=== PATIENT | male | born 1960 | race Caucasian/White ===

== ENCOUNTER → 2019-04-17 | Outpatient (CLI) | payer OTHER ==
--- NOTE | 2019-04-18 10:32 | ECHOF ---
Referral Reason:I71.3 Abdominal aortic aneurysm rupture MEASUREMENTS -------- HEIGHT: 172.7 cm WEIGHT: 73.5 kg BP: RVIDd: 3.5 cm (< 3.3) IVSd: 1.4 cm (0.6 - 1.1) LVIDd: 4.2 cm (3.9 - 5.3) LVPWd: 1.2 cm (0.6 - 1.1) IVSs: 1.6 cm LVIDs: 3.3 cm LVPWs: 1.2 cm LA Diam: 4.4 cm (2.7 - 3.8) LAESV Index (A-L): 21.18 ml/m Ao Diam: 3.3 cm (2.0 - 3.7) AV Cusp: 2.3 cm (1.5 - 2.6) MV EXCURSION: 19.783 mm (> 18.000) MV EF SLOPE: 63 mm/s (70 - 150) EPSS: 0.6 cm MV E Elijah: 0.41 m/s MV DecT: 286 ms MV A Elijah: 0.71 m/s MV E/A Ratio: 0.58 RAP: 5.00 mmHg RVSP: 17.61 mmHg FINDINGS -------- Sinus rhythm. This was a technically adequate study. The left ventricular size is normal. There is moderate concentric left ventricular hypertrophy. O verall left ventricular systolic function is low-normal with, an EF between 50 - 55 %. The right ventricle is normal in size. The left atrial size is normal. The right atrial size is normal. There is mild aortic valve sclerosis. There is no evidence of aortic regurgitation. Mild mitral annular calcification present. Mild mitral regurgitation is present. Mild tricuspid regurgitation present. Right ventricular systolic pressure is normal at < 35 mmHg. There is no evidence of pulmonary hypertension. There is no pulmonic regurgitation present. The aortic root size is normal. Echo free space represents a pericardial fat pad. CONCLUSIONS -------- 1. Sinus rhythm. 2. This was a technically adequate study. 3. The left ventricular size is normal. 4. There is moderate concentric left ventricular hypertrophy. 5. Overall left ventricular systolic function is low-normal with, an EF between 50 - 55 %. 6. The right ventricle is normal in size. 7. The left atrial size is normal. 8. The right atrial size is normal. 9. There is mild aortic valve sclerosis. 10. Mild mitral annular calcification present. 11. Mild mitral regurgitation is present. 12. Mild tricuspid regurgitation present. 13. Right ventricular systolic pressure is normal at < 35 mmHg. 14. There is no evidence of pulmonary hypertension. 15. There is no pulmonic regurgitation present. 16. The aortic root size is normal. 17. Echo free space represents a pericardial fat pad. IN [employer]OL SUSPENSION AIDE: Jessie Clarke RDCS
== END | disposition home or self-care (01) ==
LOC: RADECHMAIN 12:50
PROVIDERS: ATTEND Family Medicine
DX: I08.1 Rheumatic disorders of both mitral and tricuspid valves (principal); Z88.0 Allergy status to penicillin; Z91.030 Bee allergy status
CPT/HCPCS: 93306

== ENCOUNTER → 2020-07-14 | Outpatient (CLI) | payer OTHER ==
--- NOTE | 2020-07-14 12:26 | MR ---
TYPE: MR knee RT wo con DATE OF EXAM: 07/14/2020 COMPARISON: Outside radiograph 06/26/2020 HISTORY: 59-year-old male M25.561, Right knee pain x 3-4 months TECHNIQUE: Multiplanar, multisequence imaging of the right knee is performed without IV contrast. FINDINGS: ACL, PCL, MCL, and LCL complex are intact. There is inner margin tearing/fraying involving the posterior horn of the medial meniscus. Moderate d iffuse thinning of medial compartment articular cartilage with severe, full-thickness cartilage loss along the A2 medial lip of the medial tibial plateau. Reactive underlying subchondral marrow edema. Lateral meniscus is intact. Mild diffuse thinning of lateral compartment articular cartilage volume. Mild thinning of patellofemoral compartment articular cartilage. No high-grade cartilage defect. Extensor mechanism is intact. Anterior soft tissue swelling. Edema within the suprapatellar fat pad. No significant knee joint effusion. Normal popliteal artery anatomy in muscle bulk. No suspicious bone marrow replacement. IMPRESSION: 1. Some inner margin tearing/fraying of the posterior horn of the medial meniscus. 2. Moderate diffuse thinning of medial compartment articular cartilage volume along with high-grade c artilage loss along the anterior medial aspect of the tibial plateau. There is associated prominent u nderlying degenerative bone marrow signal changes. 3. Nonspecific anterior soft tissue swelling. Edema in the suprapatellar fat pad may be seen with fat pad impingement syndrome. Clinically correlate.
== END | disposition home or self-care (01) ==
LOC: RADMRIMAIN 11:05
PROVIDERS: ATTEND Orthopaedic Surgery
DX: M23.321 Other meniscus derangements, posterior horn of medial meniscus, right knee (principal); M75.41 Impingement syndrome of right shoulder

== ENCOUNTER → 2020-08-19 | Outpatient (CLI) | payer OTHER ==
[2020-08-19 15:48] LABS: Basophils # (A) 0.1 k/uL (0-0.2); Basophils % (A) 1 %; Eosinophils # (A) 0.2 k/uL (0-0.7); Eosinophils % (A) 3 %; HCT 40.6 % (39.0-53.0); HGB 14.3 gm/dL (13.0-17.5); Lymphocytes % (A) 29 %; MCH 33.2 pg (25.0-35.0); MCHC 35.1 g/dL (31.0-37.0); MCV 94.6 fL (80.0-100.0); Mean Platelet Volume 7.4; Monocytes # (A) 0.6 k/uL (0-1.0); Monocytes % (A) 8 %; Neutrophils # (A) 3.8 k/uL (1.3-7.7); Neutrophils % (A) 56 %; Platelet Count 267 k/uL (150-450); RBC 4.29 m/uL (4.30-5.90); RDW 12.2 % (11.5-15.5); WBC 6.9 k/uL (3.8-10.6)
[2020-08-19 15:56] LABS: Potassium 4.7 mmol/L (3.5-5.1)
--- NOTE | 2020-08-19 16:09 | XR ---
EXAMINATION TYPE: XR chest 2V DATE OF EXAM: 08/19/2020 COMPARISON: NONE HISTORY: Z01.818,M23.91 TECHNIQUE: Frontal and lateral views of the chest are obtained. FINDINGS: There is no focal air space opacity, pleural effusion, or pneumothorax seen. The cardiac silhouette size is within normal limits. The osseous structures are intact. IMPRESSION: No acute cardiopulmonary process.
== END | disposition home or self-care (01) ==
LOC: LABPAT 14:14
PROVIDERS: ATTEND Orthopaedic Surgery
DX: Z01.812 Encounter for preprocedural laboratory examination (principal); M23.91 Unspecified internal derangement of right knee
CPT/HCPCS: 36415; 71046; 80051; 85025; 93005

== ENCOUNTER → 2020-08-29 | Day surgery (SDC) | payer OTHER ==
[2020-08-27 15:25] VITALS: BMI 24.3
[~2020-08-29] MED LIST: DEXAMETHASONE SOD PHOSPHATE 4 MG/ML 1 ML VIAL IV ONE; KETAMINE 10 MG/ML 20 ML VIAL ONE; KETOROLAC 15 MG/ML 1 ML VIAL IVP ONE; KETOROLAC 15 MG/ML 1 ML VIAL ONE; LACTATED RINGERS 1,000 ML IV ONE; LACTATED RINGERS 1,000 ML IV SCH; LIDOCAINE 1% INJ 10MG/ML (20 ML MDV) ONE; MIDAZOLAM 2 MG/2 ML VIAL IV PRN; MIDAZOLAM 2 MG/2 ML VIAL ONE; ONDANSETRON 4 MG/2 ML VIAL IVP ONE; PHENYLEPHRINE-0.9% NACL SYG 1,000 MCG/10 ML SYRINGE ONE; PROPOFOL 10 MG/ML 20 ML VIAL IV ONE; SCOPOLAMINE 1.5MG/72HR PATCH TRANSDERM ONE; ePHEDrine SULFATE/0.9% NACL/PF 50 MG/5 ML SYRINGE IV ONE; fentaNYL (PF) 50 MCG/ML 2 ML AMP ONE
--- NOTE | 2020-08-29 10:11 | P.OP ---
Date of Procedure: 08/29/20 Preoperative Diagnosis: Right knee internal derangement Postoperative Diagnosis: Right knee posterior medial meniscal tear/grade 4 chondral injury anterior medial portion medial tibial plateau Procedure(s) Performed: Right knee arthroscopic partial medial meniscectomy/microfracture medial tibial plateau Anesthesia: ERICAA Surgeon: Roger Leong Estimated Blood Loss (ml): 10 Pathology: none sent Condition: stable Disposition: PACU Indications for Procedure: The patient's a 59-year-old male who presents with progressive right knee pain and mechanical symptoms that developed after a previous injury. A discussion of the risks and benefits of operative intervention versus continued conservative measures was made with patient. He opted to proceed with surgery. Operative risks to include infection, neurovascular injury, development of blood clots, possible incomplete resolution of symptoms, possible worsening symptoms and need for subsequent procedures was discussed. Informed consent was obtained. Operative Findings: As below Description of Procedure: The patient was brought to the operating room, and after induction of general anesthesia examined the right knee. Collaterals were stable, Aliya was negative, and posterior drawer was negative. The right lower extremity was prepped and draped in a normal fashion. A superior lateral portal was made through a 3 mm skin incision superior and lateral to the patella. This was used for outflow. A lateral portal was made through a 5 mm vertical skin incision lateral to the patella tendon above the joint line. Diagnostic arthroscopy was performed. On inspection of the medial compartment, a horizontal tear involving the posterior aspect the medial meniscus in the white-white junction was noted. This was debrided back to stable base with straight baskets and a motorized shaver. The remaining medial meniscus was stable and intact. A grade 4 chondral injury was noted involving the anterior medial aspect the medial tibial plateau measuring 5 x 8 mm. Microfracture was performed with a power patient reaching the subchondral surface down to the bone marrow elements. Diffuse grade 2 chondral changes were noted in the medial compartment. On inspection of the notch, the anterior cruciate ligament appeared to be intact. On inspection of the lateral compartment, no significant meniscal pathology was noted. On inspection of the patellofemoral articulation on the grade 2 chondral changes were noted with no loose cartilage fragments.. The gutters were clear of debris. The knee was then thoroughly irrigated. The portals were closed with Steri-Strips. A sterile dressing was applied in addition to a compression stocking. The patient was awoken from general anesthesia and transferred to recovery room in good condition. Blood loss was estimated at 10 mL. No complications were incurred.
[2020-08-29 10:20] VITALS: TEMP 97.1
[2020-08-29] MEDS: HYDROmorphone 0.5 MG/0.5 ML SYRINGE IVP PRN ×2 (10:58→11:15)
[2020-08-29 11:22] VITALS: RESP 17
[2020-08-29 11:57] VITALS: BP 117/75; PULSE 70
== END | disposition home or self-care (01) ==
LOC: OR 07:51
PROVIDERS: ATTEND Orthopaedic Surgery
DX: M23.203 Derangement of unspecified medial meniscus due to old tear or injury, right knee (principal); S83.31XA Tear of articular cartilage of right knee, current, initial encounter; X58.XXXA Exposure to other specified factors, initial encounter; I10 Essential (primary) hypertension; Z80.9 Family history of malignant neoplasm, unspecified; Z83.6 Family history of other diseases of the respiratory system; F17.210 Nicotine dependence, cigarettes, uncomplicated; K21.9 Gastro-esophageal reflux disease without esophagitis; Z79.82 Long term (current) use of aspirin; Z79.899 Other long term (current) drug therapy; Z88.0 Allergy status to penicillin; Z91.030 Bee allergy status
CPT/HCPCS: 29881; 29879; J2250; J1100; J0690; J2405; J2001; J3010; J1885; J2370; J2704; J1170

== ENCOUNTER → 2021-07-03 | Outpatient (CLI) | payer OTHER ==
--- NOTE | 2021-07-03 15:37 | CT ---
CT urogram. HISTORY: Gross hematuria. COMPARISON: None. TECHNIQUE: Multiple axial images were obtained through the abdomen and pelvis following uneventful ad ministration nonionic IV contrast. Pre and postcontrast images and delayed postcontrast images were o btained. Coronal and sagittal reconstructions were generated and reviewed. FINDINGS: Visualized lung bases are clear. On the pre-IV contrast images, there is no cholelithiasis. There are single vascular calcifications b ilaterally but no renal collecting system , ureteral or urinary bladder calcifications.. On the postcontrast images, the kidneys excrete contrast promptly and symmetrically and there is no h ydronephrosis. There are no filling defects within the visualized renal collecting systems or urinary bladder. The caliber of the abdominal aorta is normal. There is no retroperitoneal adenopathy or hemorrhage. The bowel loops are normal in caliber and there is no evidence of obstruction. No inflammatory change s are identified in the bowel wall or mesentery and there is no free intraperitoneal air or fluid. There is moderate to marked diverticulosis of sigmoid colon without CT evidence of diverticulitis. There is no pelvic mass, free fluid, abscess or adenopathy. The osseous structures are intact. IMPRESSION: Moderate to marked diverticulosis of the sigmoid colon with no other significant abnormality seen. Sp ecifically, no significant abnormality of the kidneys or collecting systems.
== END | disposition home or self-care (01) ==
LOC: RADCTMAIN 13:36
PROVIDERS: ATTEND Urology
DX: K57.30 Diverticulosis of large intestine without perforation or abscess without bleeding (principal); R31.0 Gross hematuria
CPT/HCPCS: 74178; 74400; Q9967